=== PATIENT | female | born 1960 | race African-American/Black ===

== ENCOUNTER 2020-03-21 11:07 | Emergency (ER) | payer SELFPAY ==
--- OUTSIDE RECORDS SUMMARY | 2020-03-21 11:09 | XMS REPORT | Continuity of Care Document ---
:1960 Author Organization [facility] [place] Care Team Providers Name Role Phone [employer] Unavailable Un available Problems Problem Status Onset Classification Date Comments Sourc e Date Reported KNEE INJURY Active [facility] 2 POST/ACC/UD Active [facility] S 2 EXAM-MEDICO Active [facility] LEGAL REASONS Medications Medication Details Route Status Patient Ordering Order Source Instructions Provider Date Naprosyn 500 500 mg, 1 tab, PO Active [facility] mg oral PO, BID, 14 012 [place] tablet tab, Substitution Allowed, TAB acetaminophen 1-2 tab, PO, PO Active [facility] -hydrocodone Q4-6H, PRN, 15 012 [place] 500 mg-5 mg tab, Pain, oral tablet Substitution Allowed, Maintenance Toradol 30 60 mg, 2 mL, IM No [facility] mg/mL Route: IM, Drug Longer 012 [place] injectable form: INJ, Active solution ONCE, Start date: 04/14/12 15:14:00, Stop date: 04/14/12 15:14:00 acetaminophen 1 tab, Route: PO No [facility] -hydrocodone PO, Drug Form: Longer 012 [place] 325 mg-5 mg TAB, ONCE, Active oral tablet STAT, Start date: 04/14/12 15:13:00, Stop date: 04/14/12 15:13:00 Allergies, Adverse Reactions, Alerts No Known Medication Allergies Immunizations No Data Provided for This Section Results No Data Provided for This Section Pathology Reports No Data Provided for This Section Diagnostic Reports No Data Provided for This Section Consultation Notes No Data Provided for This Section Discharge Summaries No Data Provided for This Section History and Physicals No Data Provided for This Section Vital Signs Vital Sign Value Date Comments Source Height 165.10 cm 04/14/2012 [facility] Weight 75.000 04/14/2012 [facility] Encounters Location Location Encounter Encounter Reason Attending ADM ME Stat Source Details Type Number For Provider Date Date Visit Emergency [id number] [facility] 04/14 04/14 Discharg [facility] /2011 ed Nilda echevarria Out[facility] [id number] [facility] 04/14 04/14 Dischar g [facility] /2011 ed Nilda echevarria Procedures No Data Provided for This Section Assessment and Plan No Data Provided for This Section Plan of Care No Data Provided for This Section Social History No Data Provided for This Section Family History No Data Provided for This Section Advance Directives No Data Provided for This Section Functional Status No Data Provided for This Section
[2020-03-21 13:11] LABS: Absolute Lymphocytes (CBC) 1.2 K/uL (0.7-4.9); Basophils % 0.8 % (0-1.3); Hematocrit 33.8 % (36.0-45.0); Lymphocytes % 36.5 % (15.3-44.8); MPV 8.3 fL (7.6-11.3); RBC Red Blood Cell Count 4.27 M/uL (3.86-4.86)
--- NOTE | 2020-03-21 13:18 | RAD REPORT ---
EXAM DESCRIPTION: RAD - Chest Single View - 03/21/2020 1:13 pm CLINICAL HISTORY: COVID+;Chest pain;Cough;Dyspnea Chest pain. COMPARISON: No comparisons FINDINGS: Portable technique limits examination quality. The lungs are grossly clear. The heart is normal in size. No displaced fractures. IMPRESSION: No acute intrathoracic process suspected.
[2020-03-21 13:32] LABS: BUN Blood Urea Nitrogen 15 mg/dL (7-18); Bicarbonate 29 mmol/L (21-32); Glucose Level 91 mg/dL (74-106); Potassium 3.8 mmol/L (3.5-5.1); Sodium Level 144 mmol/L (136-145); Troponin (Emerg Dept Use Only) < 0.02 ng/mL (0.0-0.045)
[2020-03-21] MEDS ORDERED: ASPIRIN 81 MG CHEWABLE TABLET ONE (14:44)
[2020-03-21 14:53] LABS: Albumin 3.8 g/dL (3.4-5.0); Bilirubin Direct 0.2 mg/dL (0-0.2); Bilirubin Total 0.6 mg/dL (0.2-1.0); Magnesium 2.2 mg/dL (1.8-2.4); Protein, Total 7.9 g/dL (6.4-8.2)
[2020-03-21 15:30] LABS: Protime INR 1.11
--- NOTE | 2020-03-21 15:52 | ER ---
Nurse's Notes [facility] Name: Alicia Ramsey Age: 59 yrs Sex: Female : 1960 Arrival Date: 03/21/2020 Time: 11:10 Bed 19 Private MD: Diagnosis: Chest pain, unspecified Presentation: 03/21 11:15 Chief complaint: Patient states: L sided chest discomfort x 3 days with intermittent ss SOB. Pt was tested for COVID on 03/12 and was told she was positive Denies fever, cough. Coronavirus screen: Patient denies a cough. Patient reports shortness of breath or difficulty breathing. Patient denies measured and/or subjective temperature greater than 100.4F prior to today's visit. Ebola Screen: Patient denies exposure to infectious person. Patient denies travel to an Ebola-affected area in the 21 days before illness onset. Initial Sepsis Screen: Does the patient meet any 2 criteria? No. Patient's initial sepsis screen is negative. Does the patient have a suspected source of infection? No. Patient's initial sepsis screen is negative. Risk Assessment: Do you want to hurt yourself or someone else? Patient reports no desire to harm self or others. Onset of symptoms was March 18, 2020. 11:15 Method Of Arrival: Ambulatory ss 11:15 Acuity: MEREDITH 3 ss Historical: - Allergies: 11:18 No Known Allergies; ss - Home Meds: 11:18 None [Active]; ss - PMHx: 11:18 None; ss - Immunization history:: Adult Immunizations up to date. - Social history:: Smoking status: Patient denies any tobacco usage or history of. Screenin:00 Abuse screen: Denies threats or abuse. Abuse screen: Denies threats or abuse. vc Nutritional screening: No deficits noted. Tuberculosis screening: No symptoms or risk factors identified. Fall Risk None identified. Assessment: 11:20 General: Appears in no apparent distress. comfortable, Behavior is calm, cooperative. ss General:. Pain: Complains of pain in anterior aspect of left upper chest and left breast Pain radiates to to back (intermittently) Pain currently is 6 out of 10 on a pain scale. Quality of pain is described as aching, Pain began 3 days ago Is continuous. 15:00 Neuro: Level of Consciousness is awake, alert, obeys commands, Oriented to person, vc place, time, situation, Appropriate for age. Cardiovascular: Capillary refill < 3 seconds Patient's skin is warm and dry. Respiratory: Airway is patent Respiratory effort is even, unlabored, Respiratory pattern is regular, symmetrical. 15:45 Reassessment: Patient appears in no apparent distress at this time. Patient and/or vc family updated on plan of care and expected duration. Pain level reassessed. Patient is alert, oriented x 3, equal unlabored respirations, skin warm/dry/pink. Patient states feeling better. Patient states symptoms have improved. 16:45 Reassessment: Patient appears in no apparent distress at this time. Patient and/or vc family updated on plan of care and expected duration. Pain level reassessed. Patient is alert, oriented x 3, equal unlabored respirations, skin warm/dry/pink. Patient states feeling better. Patient states symptoms have improved. Vital Signs: 11:15 BP 140 / 76; Pulse 73; Resp 16; Pulse Ox 100% on R/A; Weight 79.38 kg; Height 5 ft. 5 ss in. (165.10 cm); Pain 6/10; 11:18 Temp 98.9(O); ss 15:30 BP 136 / 78; Pulse 63; Resp 19; Pulse Ox 100% on R/A; vc 17:00 BP 132 / 67; Pulse 65; Resp 20; Pulse Ox 99% on R/A; vc 11:15 Body Mass Index 29.12 (79.38 kg, 165.10 cm) ss ED Course: 11:10 Patient arrived in ED. bp1 11:18 Triage completed. ss 11:18 Arm band placed on right wrist. ss 11:25 Maame Rowland FNP-C is PHCP. kb 11:25 Remy Ochoa MD is Attending Physician. kb 12:20 library monitor on. Pulse ox on. NIBP on. jp3 12:20 Placed in gown. Bed in low position. Call light in reach. Side rails up X 1. Warm jp3 blanket given. Verbal reassurance given. 12:20 EKG done, by ED staff, reviewed by Maame RÍOS. jp3 12:29 Roslyn Duggan RN is Primary Nurse. ss 12:40 X-ray(s) taken. Patient maintains SpO2 saturation greater than 95% on room air. jp3 12:51 Initial lab(s) drawn, by me, sent to lab. Inserted saline lock: 20 gauge in right jp3 antecubital area, using aseptic technique. Blood collected. 13:13 Chest Single View XRAY In Process Unspecified. EDMS 15:51 Farhan Garg MD is Hospitalizing Provider. kb 15:51 Hospitalizing Provider role handed off by Farhan Garg MD kb 15:51 Francisco Garg MD is Hospitalizing Provider. kb 17:09 No provider procedures requiring assistance completed. IV discontinued, intact, vc bleeding controlled, No redness/swelling at site. Pressure dressing applied. Administered Medications: 14:47 Not Given (ttok aspirin this morning): Aspirin Chewable Tablet 324 mg PO once; 81 mg ll1 tablets x 4 Outcome: 15:51 Decision to Hospitalize by Provider. kb 16:34 Discharge ordered by MD. kb 17:09 Discharged to home ambulatory. vc 17:09 Condition: good 17:09 Discharge instructions given to patient, Instructed on discharge instructions, follow up and referral plans. Demonstrated understanding of instructions, follow-up care. 17:10 Patient left the ED. vc Signatures: Dispatcher [employer] EDVA Maame Rowland, LINUX ADMIN-C LINUX ADMIN-Pjb Roslyn Duggan RN RN [place] jp3 Dominique Shane RN RN vc Carolyn Ocampo Lynsay RN ll1
--- NOTE | 2020-03-21 15:52 | EDPHYS ---
Physician Documentation [facility] Name: Alicia Ramsey Age: 59 yrs Sex: Female : 1960 Arrival Date: 03/21/2020 Time: 11:10 Bed 19 Private MD: ED Physician Remy Ochoa HPI: 03/21 14:25 This 59 yrs old Black Female presents to ER via Ambulatory with complaints of COVID+, kb Chest Pain. 14:25 The patient or guardian reports chest pain that is located primarily in the anterior kb chest wall, left. Onset: 3 day(s) ago. The pain radiates to Associated signs and symptoms: Pertinent positives: shortness of breath, Pertinent negatives: abdominal pain, cough, diaphoresis, dizziness, headache, lower extremity pain, lower extremity swelling, lightheadedness, nausea, near syncope, palpitations, recent travel, syncope, vomiting. The chest pain is described as aching. Duration: The patient or guardian reports a single episode, that is still ongoing. Modifying factors: The symptoms are alleviated by nothing. the symptoms are aggravated by nothing. Severity of pain: At its worst the pain was moderate in the emergency department the pain is unchanged. The patient has not experienced similar symptoms in the past. The patient has not recently seen a physician. Pt reports left sided chest pain for 3 days with intermittent shortness of breath. Tested positive for COVID 9 days ago. Historical: - Allergies: 11:18 No Known Allergies; ss - Home Meds: 11:18 None [Active]; ss - PMHx: 11:18 None; ss - Immunization history:: Adult Immunizations up to date. - Social history:: Smoking status: Patient denies any tobacco usage or history of. ROS: 14:22 Constitutional: Negative for fever, chills, and weight loss, Neck: Negative for injury, kb pain, and swelling, Abdomen/GI: Negative for abdominal pain, nausea, vomiting, diarrhea, and constipation, Back: Negative for injury and pain, MS/Extremity: Negative for injury and deformity, Skin: Negative for injury, rash, and discoloration, Neuro: Negative for headache, weakness, numbness, tingling, and seizure. 14:22 Cardiovascular: Positive for chest pain, Negative for edema, orthopnea, palpitations, paroxysmal nocturnal dyspnea. 14:22 Respiratory: Positive for shortness of breath, Negative for cough, dyspnea on exertion, hemoptysis, orthopnea, pleurisy, sputum production, wheezing. Exam: 14:22 Constitutional: This is a well developed, well nourished patient who is awake, alert, kb and in no acute distress. Head/Face: Normocephalic, atraumatic. Chest/axilla: Normal chest wall appearance and motion. Nontender with no deformity. No lesions are appreciated. Cardiovascular: Regular rate and rhythm with a normal S1 and S2. No gallops, murmurs, or rubs. Normal PMI, no JVD. No pulse deficits. Respiratory: Lungs have equal breath sounds bilaterally, clear to auscultation and percussion. No rales, rhonchi or wheezes noted. No increased work of breathing, no retractions or nasal flaring. Abdomen/GI: Soft, non-tender, with normal bowel sounds. No distension or tympany. No guarding or rebound. No evidence of tenderness throughout. Back: No spinal tenderness. No costovertebral tenderness. Full range of motion. Skin: Warm, dry with normal turgor. Normal color with no rashes, no lesions, and no evidence of cellulitis. MS/ Extremity: Pulses equal, no cyanosis. Neurovascular intact. Full, normal range of motion. Neuro: Awake and alert, GCS 15, oriented to person, place, time, and situation. Cranial nerves II-XII grossly intact. Motor strength 5/5 in all extremities. Sensory grossly intact. Cerebellar exam normal. Normal gait. Vital Signs: 11:15 BP 140 / 76; Pulse 73; Resp 16; Pulse Ox 100% on R/A; Weight 79.38 kg; Height 5 ft. 5 ss in. (165.10 cm); Pain 6/10; 11:18 Temp 98.9(O); ss 15:30 BP 136 / 78; Pulse 63; Resp 19; Pulse Ox 100% on R/A; vc 17:00 BP 132 / 67; Pulse 65; Resp 20; Pulse Ox 99% on R/A; vc 11:15 Body Mass Index 29.12 (79.38 kg, 165.10 cm) ss MDM: 11:25 Patient medically screened. kb 14:21 Data reviewed: vital signs, nurses notes. Data interpreted: Pulse oximetry: on room air kb is 100 %. Interpretation: normal. ED course: Discussed pt condition and diagnostics with ERP. Recommends admission for chest pain rule out HI. 15:51 The patient was not given aspirin in the Emergency Department. Patient reports taking kb aspirin within the past 24 hours. Counseling: I had a detailed discussion with the patient and/or guardian regarding: the historical points, exam findings, and any diagnostic results supporting the discharge/admit diagnosis, lab results, radiology results, the need for further work-up and treatment in the hospital. Physician consultation: Francisco Garg MD was contacted at 15:51, regarding admission, to the telemetry unit. patient's condition, and will see patient in ED, shortly. 16:33 ED course: Dr Garg evaluated pt and wants pt discharged from the ER. Pt will follow kb up with PCP/cardiology.. 03/21 12:19 Order name: CBC with Diff; Complete Time: 13:15 kb 03/21 12:19 Order name: Basic Metabolic Panel; Complete Time: 13:43 kb 03/21 12:19 Order name: Troponin (emerg Dept Use Only); Complete Time: 13:43 kb 03/21 14:21 Order name: LFT's; Complete Time: 15:01 kb 03/21 14:21 Order name: Magnesium; Complete Time: 15:01 kb 03/21 14:21 Order name: NT PRO-BNP; Complete Time: 15:01 kb 03/21 11:26 Order name: Chest Single View XRAY; Complete Time: 13:23 kb 03/21 11:26 Order name: EKG; Complete Time: 11:27 kb 03/21 11:26 Order name: EKG - Nurse/Tech; Complete Time: 12:27 kb 03/21 12:19 Order name: IV Start; Complete Time: 12:58 kb 03/21 14:21 Order name: PT-INR; Complete Time: 15:46 kb 03/21 14:21 Order name: D-Dimer; Complete Time: 15:46 kb 03/21 14:59 Order name: Diet Heart Healthy; Complete Time: 14:59 mt 03/21 14:21 Order name: Cardiac monitoring; Complete Time: 14:24 kb 03/21 14:21 Order name: Labs collected and sent; Complete Time: 14:24 kb 03/21 14:21 Order name: O2 Per Protocol; Complete Time: 14:24 kb 03/21 14:21 Order name: O2 Sat Monitoring; Complete Time: 14:25 kb Administered Medications: 14:47 Not Given (ttok aspirin this morning): Aspirin Chewable Tablet 324 mg PO once; 81 mg ll1 tablets x 4 Disposition: 18:09 Co-signature as Attending Physician, Remy Ochoa MD I agree with the assessment and dilip plan of care. Disposition: 03/21/20 16:34 Discharged to Home. Impression: Chest pain, unspecified. - Condition is Stable. - Discharge Instructions: Nonspecific Chest Pain, [id number]. - Medication Reconciliation Form, Thank You Letter, Antibiotic Education, Prescription Opioid Use form. - Follow up: Emergency Department; When: As needed; Reason: Worsening of condition. Follow up: Private Physician; When: 2 - 3 days; Reason: Recheck today's complaints, Continuance of care, Re-evaluation by your physician. Signatures: Dispatcher [employer] EDNE Maame Rowland, JAQUELINE-C JAQUELINE-Remy Mcgowan MD MD cha Smirch, Shelby, RN RN ss Dominique Shane RN RN vc Lewis, Lynsay RN ll1 Corrections: (The following items were deleted from the chart) 16:33 15:51 Hospitalization Ordered by Francisco Garg MD for Observation. Preliminary kb diagnosis is Chest pain, unspecified. Bed requested for Telemetry/MedSurg (observation). Status is Observation. Condition is Stable. Problem is new. Symptoms are unchanged. kb 17:10 16:34 03/21/2020 16:34 Discharged to Home. Impression: Chest pain, unspecified. Condition is Stable. Forms are Medication Reconciliation Form, Thank You Letter, Antibiotic Education, Prescription Opioid Use. Follow up: Emergency Department; When: As needed; Reason: Worsening of condition. Follow up: Private Physician; When: 2 - 3 days; Reason: Recheck today's complaints, Continuance of care, Re-evaluation by your physician. kb
--- NOTE | 2020-03-21 16:32 | P.CNS ---
Date of Consult: 03/21/20 Reason for Consult: Covid positive/chest pain Requesting Physician: Remy Ochoa Primary Care Provider: Unknown Chief Complaint: Chest pain/ Covid positive History of Present Illness: 59-year-old female with no significant past medical history that was diagnosed to be positive for kinsey virus 9 days ago presents to the emergency room complaining of 3 days of intermittent chest pain. Patient states that for the past 3 days she has had intermittent chest pain. Describes chest pain as intermittent, aching, on the left side of her chest. Complains of intermittent shortness of breath as well. The chest pain continues in the ED. Denies abdominal pain, cough, dyspnea on exertion, dizziness, headache, lightheadedness, syncope, palpitations, nausea or vomiting. Denies smoking and/or drug use. In the ED patient's blood work is fairly unremarkable. D-dimer is less than 215-normal, creatinine of 0.9, troponin 0.02, an urine unremarkable. Chest x- ray is unremarkable with no acute cardiopulmonary process. On exam patient is calm and alert and oriented x3. She denies smoking drinking or drugs. States that her chest pain has been ongoing for the past 3 days intermittently. On exam patient's chest pain had resolved. Oxygen saturations are 100% on room air, blood pressure 140/76, pulse rate of 73, respiratory rate of 16 and temperature of 98 Home medications list reviewed: Yes - Past Medical/Surgical History Diabetic: No -: none -: none Psychosocial/ Personal History: Lives at home - Social History Smoking Status: Never smoker Alcohol use: No CD- Drugs: No Caffeine use: No Place of Residence: Home <Noam Torres - Last Filed: 03/21/20 16:26> <Francisco Garg - Last Filed: 03/22/20 07:43> Allergies No Known Allergies Allergy (Unverified 11/29/11 13:01) Review of Systems General: As per HPI Eyes: Unremarkable ENT: Unremarkable Respiratory: Shortness of Breath Cardiovascular: Chest Pain Gastrointestinal: Unremarkable Genitourinary: Unremarkable Musculoskeletal: Unremarkable Neurological: Unremarkable <Noam Torres - Last Filed: 03/21/20 16:26> Physical Examination Temperature 98.9, blood pressure 140/76, pulse rate 73, respiratory rate of 16, pain 6/10 General: Alert, In no apparent distress, Oriented x3 HEENT: Atraumatic, Normocephalic, PERRLA Neck: Supple, Other (Trachea midline) Respiratory: Clear to auscultation bilaterally, Normal air movement Cardiovascular: No edema, Normal pulses, Regular rate/rhythm Capillary refill: <2 Seconds Gastrointestinal: Normal bowel sounds, Soft and benign, Non-distended Musculoskeletal: No clubbing, No swelling, No contractures Integumentary: No rashes, No breakdown, No significant lesion, No tenderness/swelling Neurological: Normal gait, Normal speech, Normal strength at 5/5 x4 extr, Normal tone Other Physical/Emotional Findings: Lives at home Laboratory Data (last 24 hrs) 03/21/20 14:40: PT 13.1 H, INR 1.11 03/21/20 12:51: Magnesium 2.2, Total Bilirubin 0.6, AST 19, ALT 24, Alkaline Phosphatase 69 03/21/20 12:51: Sodium 144, Potassium 3.8, BUN 15, Creatinine 0.90, Glucose 91 03/21/20 12:51: WBC 3.4 L, Hgb 11.1 L, Hct 33.8 L, Plt Count 272 <Noam Torres - Last Filed: 03/21/20 16:26> Temp Pulse Resp BP Pulse Ox 98.9 F 65 20 132/67 03/21/20 11:18 03/21/20 17:00 03/21/20 17:00 03/21/20 17:00 Laboratory Data (last 24 hrs) 03/21/20 14:40: PT 13.1 H, INR 1.11 03/21/20 12:51: Magnesium 2.2, Total Bilirubin 0.6, AST 19, ALT 24, Alkaline Phosphatase 69 03/21/20 12:51: Sodium 144, Potassium 3.8, BUN 15, Creatinine 0.90, Glucose 91 03/21/20 12:51: WBC 3.4 L, Hgb 11.1 L, Hct 33.8 L, Plt Count 272 <Francisco Garg - Last Filed: 03/22/20 07:43> - Problems (1) Chest pain, atypical Status: Acute Conclusions/Impression: Impression: Atypical chest pain: Covid 19 positive 9 days ago: Plan: Atypical chest pain: Chest pain is likely noncardiac in nature. Chest pain is somewhat reproducible with palpation to chest. She denies chest pain on my bedside examination in the ED. Lab work is unremarkable with a D-dimer less than 215, creatinine of 0.90, negative troponin of 0.02, and EKG did show an inverted T-wave. Patient takes 1 aspirin a day but has no cardiac history. She was told she was positive Covid 19 90s ago and has been in quarantine. Discussed with patient to follow up with Dr. Hurley in clinic if chest pain persists or to return to ED if symptoms worsen. Patient agreeable Covid 19 positive 9 days ago: In quarantine at home. Not requiring O2 support, no respiratory problems. Time Spent Managing Pts care (In Minutes): 45 <Noam Torres - Last Filed: 03/21/20 16:26> - Problems (1) Chest pain, atypical Status: Acute Physician Review Additional Text: Chart reviewed. Atypical chest pain. No risk factors. Trop neg. EKG non specific changes. No prior Hx of CAD or chest pain. Recent COVID pos. Agree with D/C home and f/u with cardiology if needed <Francisco Garg - Last Filed: 03/22/20 07:43>
[2020-03-21 17:25] VITALS: TEMP 98.9
[2020-03-21 17:27] VITALS: BP 132/67; O2SAT 99
== END 2020-03-21 17:10 | disposition home or self-care (01) ==
LOC: ER 11:07
DX: R07.9 Chest pain, unspecified (principal)
CPT/HCPCS: 36415; 71045; 80048; 80076; 83735; 83880; 84484; 85025; 85379; 85610; 93005; 99285